=== PATIENT | female | born 1965 | race Caucasian/White ===

== ENCOUNTER 2018-03-22 15:55 | Emergency (ER) | payer OTHER ==
[~2018-03-22] VITALS: Ht 157.5 cm; Wt 68.6 kg
[~2018-03-22 15:55] MED LIST: ALLOPURINOL100 MG PO; APRESOLINE50 MG PO; APRI1 EACH PO; ARTIFICIAL TEAR15 M1 BOTH EYES; CRESTOR5 MG PO; FAMOTIDINE20 MG PO; FLONASE16 G1 BOTH NARES; HYDRALAZINE HCL10 MG PO; LABETALOL HCL200 MG PO; LOSARTAN POTAS100 MG PO; NORMODYNE,TRAN200 MG PO; PHOSPHA250 MG PO; ROCALTROL0.25 MCG PO; SYNTHROID200 MCG PO; SYNTHROID25 MCG PO; ZYRTEC10 M3 PO
[2018-03-22 16:59] LABS: HEMATOCRIT 25.6 % (36.0-46.0); MCH 30.3 PG (29.0-34.0); MCHC 35.2 G/DL (30.0-36.0); MCV 86.2 FL (83-99); PLATELET COUNT 283 K/uL (156-360); RBC DIS.WIDTH-CV 11.3 % (11.8-14.6); RBC DIS.WIDTH-SD 34.8 % (39-53); RED BLOOD COUNT 2.97 M/uL (3.80-5.20)
[2018-03-22 17:09] LABS: ALBUMIN 3.9 g/dL (3.2-4.8); CHLORIDE 103 mEq/L (99-109); POTASSIUM 3.5 mEq/L (3.7-5.4); SODIUM 135 mEq/L (136-147)
[2018-03-22 17:11] LABS: GLUCOSE 145 mg/dL (70-99)
[2018-03-22 17:12] LABS: TOTAL PROTEIN 6.6 g/dL (6.4-8.3)
[2018-03-22 17:13] LABS: TOTAL BILIRUBIN 0.4 mg/dL (0.0-1.0)
[2018-03-22 17:15] LABS: ALKALINE PHOSPHATASE 179 IU/L (3-129); CREATININE 1.8 mg/dL (0.6-1.3); GFR ESTIMATE (CALCULATED) 31 mL/min/
[2018-03-22 17:16] LABS: UREA NITROGEN (BUN) 28 mg/dL (9-23)
[2018-03-22 17:17] LABS: AST (GOT) 58 IU/L (2-34)
[2018-03-22 17:18] LABS: ALT (GPT) 92 IU/L (3-49)
[2018-03-22 17:25] LABS: QUANTITATIVE HCG 6.2 MIU/ML
[2018-03-22 18:26] LABS: APPEARANCE CLOUDY ((CLEAR)); BILIRUBIN NEGATIVE; BLOOD NEGATIVE; COLOR YELLOW ((YELLOW)); GLUCOSE (STRIP) NEGATIVE; KETONES NEGATIVE; LEUKOCYTES LARGE; NITRITE NEGATIVE; PROTEIN (STRIP) 30; SPECIFIC GRAVITY 1.009 (1.000-1.030); UROBILINOGEN 0.2 MG/DL (0.2-1.0)
[2018-03-22 18:39] LABS: BACTERIA RARE /HPF; EPITHELIAL CELLS 2+ /HPF; MUCUS TRACE /LPF; UCUL ADDED? YES; WHITE BLOOD CELLS 30-40 /HPF (0-5)
[2018-03-22] MEDS ORDERED: KEFLEX500 MG PO (20:51)
[2018-03-22] MEDS ORDERED: ZOFRAN ODT4 MG PO (20:51)
[2018-03-22 21:34] VITALS: BP 141/84
== END 2018-03-22 21:42 | disposition home or self-care (01) ==
LOC: EME 15:55
DX: B34.9 Viral infection, unspecified (principal); R11.2 Nausea with vomiting, unspecified; R19.7 Diarrhea, unspecified; N39.0 Urinary tract infection, site not specified; E86.0 Dehydration; J90 Pleural effusion, not elsewhere classified; I12.9 Hypertensive chronic kidney disease with stage 1 through stage 4 chronic kidney disease, or unspecified chronic kidney disease; N18.9 Chronic kidney disease, unspecified; Z94.0 Kidney transplant status; E78.5 Hyperlipidemia, unspecified; Z88.0 Allergy status to penicillin
CPT/HCPCS: 76705; 80053; 81003; 84702; 85027; 87077; 87086; 87186; 99281; 99283; J2405; J7030